=== PATIENT | male | born 1945 | race Caucasian/White ===

== ENCOUNTER 2023-08-08 12:26 | Emergency (ER) | payer MEDICARE, OTHER, SELFPAY ==
[2023-08-08 12:34] VITALS: BP 132/86
[2023-08-08 12:58] LABS: % Basophils 0.6 % (0-2); % Eosinophils 1.6 % (0-6); % Immature Granulocytes 0.4 % (0-0.5); % Lymphocytes 33.3 % (20.5-51.1); % Neutrophils 55.1 % (42.2-75.2); Absolute Eosinophils 0.1 10^3/uL (0-0.7); Absolute Lymphocytes 2.3 10^3/uL (1.2-3.4); Absolute Monocytes 0.6 10^3/uL (0.1-0.6); Absolute Neutrophils 3.9 10^3/uL (1.4-6.5); Hematocrit 41.4 % (39.0-52.0); Hemoglobin 12.9 g/dL (13.0-18.0); Mean Corp Hgb Conc. 31.2 g/dL (33.0-37.0); Mean Corpuscular Hgb 24.3 pg (27.0-31.0); Mean Corpuscular Volume 78.1 fL (80.0-94.0); Nucleated Red Blood Cells % 0 % (-); Platelet Count 200 10^3/uL (130-400); Red Cell Dist. Width 17.7 % (11.5-14.5)
[2023-08-08 13:10] LABS: ALT (SGPT) 24 U/L (0-50); AST (SGOT) 25 U/L (17-59); Albumin 4.1 g/dl (3.5-5.0); Alkaline Phosphatase 77 U/L (38-126); Blood Urea Nitrogen 15 mg/dl (9-20); Calcium 9.5 mg/dl (8.4-10.2); Carbon Dioxide 29 mmol/L (22-30); Chloride 107 mmol/L (98-107); Glucose 109 mg/dl (70-99); Potassium 4.5 mmol/L (3.5-5.1); Sodium 140 mmol/L (135-145); Total Bilirubin 1.1 mg/dl (0.2-1.3); Total Protein 6.9 g/dl (6.3-8.2); eGFR > 60.00
--- NOTE | 2023-08-08 14:46 | ED.GENMED ---
History of Present Illness
General
Chief Complaint: Dizziness
Source: patient
Exam Limitations: none
Time Seen by Provider: 08/08/23 14:39
Nursing documentation reviewed up to this point in time: agreed with
Travel History
Have you had any contact with someone who has COVID-19?: No
Do you have any symptoms of coronavirus? Fever > 100 degrees, chills, cough, shortness of breath, sore throat, loss of taste or smell, muscle aches, or headache?: No
History of Present Illness
History of Present Illness:
The patient is a 78-year-old man with a past medical history of hypertension, hyperlipidemia and diabetes who reports dizziness that started yesterday. Patient reports symptoms are much better. He reports that when the symptoms were more intense
yesterday, he felt nauseous. He denies vision changes. He reports for the last 7 to 10 days he has also noticed decreased hearing and ringing out of the right ear. He denies fever. He denies weakness and numbness. He denies chest pain or
shortness of breath.
Past History
Past History
ED Past Medical History: HTN, Hypercholesterolemia and NIDDM
ED Past Surgical History: Other
Social History
Tobacco: Smoker
Alcohol: Other
Drug: None
Personal: Other
Living: with family
Employment: Other
Family History
Family History: Other
Review of Systems
Review of Systems
Allergies reviewed?: Yes
All Other Systems: ROS reviewed and negative except as documented in HPI and ROS
Constitutional: Reports no symptoms
EENT: Reports other
Respiratory: Reports no symptoms
Cardiac: Reports no symptoms
ABD/GI: Reports nausea
: Reports no symptoms
Musculoskeletal: Reports no symptoms
Skin: Reports no symptoms
Neurological: Reports dizzy
Endocrine: Reports no symptoms
Hematologic/Lymphatic: Reports no symptoms
Psychiatric: Reports no symptoms
Phy Exam
Physical Exam
Physical Exam:
Physical Exam
General: no apparent distress, not acutely ill . Well and comfortable
Neck: supple. no meningeal signs. normal psoterior pharynx. TMs appear normal bilaterally
Heart: s1/s2 regular rate and rhythm,
Lungs: no acute respiratory distress. clear bilaterally
Abdomen: normal bowel sounds. not tender. no CVAT
Neuro: alert and oriented. no focal neurological deficits. Visual gallagher intact. Extraocular muscles intact. Normal [id number]. Normal gait.
Skin: no rash
Psychiatric: well kept. interactive and cooperative
Extremities: no edema. no calf tenderness. negative homans. good distal pulses
Course
Orders/Labs/Results
Orders:
Orders
08/08/23 12:40
Electrocardiogram (*1) Urgent
Reason for Study: Vertigo / Dizzy
EKG- Treatment ONCE
08/08/23 12:45
CT Head W/o Iv Contrast Urgent
Comment:
Reason For Exam: vertigo/hearing loss
08/08/23 12:47
Complete Blood Count/With Diff Urgent
Comprehensive Metabolic Panel Urgent
08/08/23 16:58
Aspirin Chewable [Low Strength Aspirin] 81 mg PO NOW STA
Clopidogrel Bisulfate [Plavix] 75 mg PO NOW STA
Abnormal Lab Results
08/08/23
12:47
Hgb 12.9 L g/dL
(13.0-18.0)
MCV 78.1 L fL
(80.0-94.0)
MCH 24.3 L pg
(27.0-31.0)
MCHC 31.2 L g/dL
(33.0-37.0)
RDW 17.7 H %
(11.5-14.5)
MPV 12.0 H fL
(7.4-10.4)
Glucose 109 H mg/dl
(70-99)
08/08/23 12:47
08/08/23 12:47
Vital Signs
Initial and Last Documented VS:
Initial Vital Signs
Temp Pulse Resp BP Pulse Ox
97.6 F 67 18 132/86 96
08/08/23 12:34 08/08/23 12:34 08/08/23 12:34 08/08/23 12:34 08/08/23 12:34
Last Documented Vital Signs
Temp Pulse Resp BP Pulse Ox
97.6 F 70 18 140/82 98
08/08/23 12:34 08/08/23 17:11 08/08/23 17:11 08/08/23 17:11 08/08/23 17:11
MDM/Problems Addressed
Differential Diagnosis Includes:
TIA, benign positional vertigo, M�ni�re's disease
MDM/Problems Addressed:
Patient presents with acute dizziness and ringing of his right ear
Chronic conditions affecting care: HTN
Acute Exacerbation and/or Progression of Chronic Illness:
Patient is mildly hypertensive, however, he has no significant hypertension
Acute Exacerbation and/or Progression of Chronic Illness: HTN
*Radiology
Radiology exam reviewed: radiology read reviewed
*Pulse Oximetry
Patient hypoxic: no
*EKG
Interpreted by ED Provider?: Yes
Interpretation: abnormal
Comparison EKG: no changes
Rate: normal
Rhythm: sinus
[place]: left axis deviation
Interval: normal interval
QRS Pattern: normal QRS
Ischemia: no ischemia
*Canopy Stringer Interpretation
Rate: normal
Interpretation: normal
Rhythm: sinus
*Critical Care Note
Total Time (30-74mins, 75-104mins- exclusive of procedures): Not Applicable
Data Reviewed
Source: patient and family
Further Testing Considered But Not Given:
Consider getting an MRI brain, however, I spoke to radiologist and I am unable to get an MRI at this time
Patient Management
Social determinants of health affecting care: Living situation and Strong social support
Discussion with other providers: Other (Dr. Dove who recommended MRI. Given patient unable to get an MRI tonight, decision made to discharge the patient on aspirin and Plavix and follow-up with neurology as an outpatient.)
Escalation/DeEscalation of care consider admission/obs:
Patient remains asymptomatic and looks well. I told the patient and his son that dizziness could be due to a possible TIA. I offered them admission to the hospital, however, they report that they rather be able to go home. They understand the
patient is recommended to start 81 mg aspirin, 75 mg of Plavix, and continue his statin to prevent a possible stroke. They understand to listen out for neurology phone call and if they do not hear from neurology, they should call neurology in about
2 to 3 days. Patient also reports he has an appointment with ENT August 17
ED Attending Note
-
Portions of this chart may have been created with voice recognition software.� Occasional wrong word or��sound alike� substitutions may have occurred due to the inherent limitations of voice recognition software.
Discharge Plan
Departure
Patient Disposition: Home (Routine Discharge)
Date of Disposition: 08/08/23
Time of Disposition: 16:54
Patient with high blood pressure during this ER visit?: Yes
Condition: Good
Covid-19: Not Applicable
Discharge Problem:
Dizziness
Instructions: Dizziness, BLOOD PRESSURE
Prescriptions:
New
meclizine 25 mg tablet
25 mg PO BID PRN (Reason: dizziness) Qty: 7 0RF
clopidogrel [Plavix] 75 mg tablet
75 mg PO DAILY 20 Days Qty: 20 0RF
Referrals:
Ely Dove, DO [Active] - (Call in 3 days if you do not hear from the neurology clinic before then. (Neurology also wants to see you in the office for dizziness))
UNKNOWN - PT DOES,NOT KNOW [Family Provider] -
Activity Restrictions/Additional Instructions:
Please return immediately with any vision changes or worsening dizziness.
To protect you against a possible stroke, please take 81 mg of aspirin (can be bought [id number]) once a day for 21 days straight, as well as 75 mg of Plavix once a day for 21 days straight. It is also important that you follow-up with the
neurologist for the dizziness. If you do not hear from neurology within 2 to 3 days, please call the neurology office to schedule an appointment.
Please also continue to take your cholesterol medicine. This is very important.
It is important that you also follow-up with your ENT appointment as you have scheduled already for August.
Interventions
Interventions:
*Risk Screen - Suicide Last Done: 08/08/23 17:13
*General Assessment Last Done: 08/08/23 17:11
*Neglect/Abuse Screening Last Done: 08/08/23 17:11
ED- Fall Risk Assessment Last Done: 08/08/23 17:13
*ED COVID-19 Vaccine History Last Done: 08/08/23 17:11
*Nursing Disposition Last Done: 08/08/23 17:11
ED- Neurological Assessment Last Done: 08/08/23 16:43
ED- Cardiac Assessment Last Done: 08/08/23 16:43
ED Swallowing Screen Last Done: 08/08/23 16:43
Discharge Date and Time
Discharge Date/Time: 08/08/23 17:13
[2023-08-08] MEDS: PLAVIX 75 MG PO (17:08)
[2023-08-08] MEDS: LOW STRENGTH ASPIRIN 81 MG PO (17:08)
[2023-08-08 17:11] VITALS: BP 140/82
== END 2023-08-08 17:13 | disposition home or self-care (01) ==
LOC: EMR 12:26
PROVIDERS: Emergency Medicine; EMERGENCY PHYSICIAN Emergency Medicine
DX: R42 Dizziness and giddiness (principal); R11.0 Nausea; H93.11 Tinnitus, right ear; I10 Essential (primary) hypertension; E78.00 Pure hypercholesterolemia, unspecified; E11.9 Type 2 diabetes mellitus without complications; I25.10 Atherosclerotic heart disease of native coronary artery without angina pectoris; F17.200 Nicotine dependence, unspecified, uncomplicated; Z79.84 Long term (current) use of oral hypoglycemic drugs; Z95.5 Presence of coronary angioplasty implant and graft; Z88.5 Allergy status to narcotic agent
CPT/HCPCS: 99284; 70450; 80053; 85025; 93005

== ENCOUNTER 2024-05-06 00:14 | Emergency (ER) | payer OTHER, SELFPAY ==
[2024-05-06 00:16] VITALS: BP 175/91
[2024-05-06 00:45] VITALS: BP 170/79; BMI 32.1
[2024-05-06] MEDS: DUONEB 9 ML INH (01:04)
[2024-05-06 01:06] VITALS: BP 166/92
[2024-05-06 01:06] LABS: % Basophils 0.4 % (0-2); % Eosinophils 2.6 % (0-6); % Immature Granulocytes 0.3 % (0-0.5); % Lymphocytes 22.4 % (20.5-51.1); % Monocytes 9.5 % (1.7-9.3); % Neutrophils 64.8 % (42.2-75.2); Absolute Eosinophils 0.2 10^3/uL (0-0.7); Absolute Lymphocytes 2.1 10^3/uL (1.2-3.4); Absolute Monocytes 0.9 10^3/uL (0.1-0.6); Absolute Neutrophils 6.1 10^3/uL (1.4-6.5); Hematocrit 39.9 % (39.0-52.0); Hemoglobin 12.1 g/dL (13.0-18.0); Mean Corp Hgb Conc. 30.3 g/dL (33.0-37.0); Mean Corpuscular Hgb 22.6 pg (27.0-31.0); Mean Corpuscular Volume 74.6 fL (80.0-94.0); Nucleated Red Blood Cells % 0 % (-); Platelet Count 199 10^3/uL (130-400); Red Blood Cell Count 5.35 10^6/uL (4.70-6.10); Red Cell Dist. Width 18.8 % (11.5-14.5); White Blood Cell Count 9.4 10^3/uL (4.8-10.8)
--- NOTE | 2024-05-06 01:10 | ED.GENMED ---
History of Present Illness
General
Chief Complaint: Pneumonia Symptoms
Time Seen by Provider: 05/06/24 00:31
History of Present Illness
History of Present Illness:
78-year-old male with history of CAD on Plavix, hypertension, hyperlipidemia presenting to the emergency department for cough and difficulty breathing. Patient reports symptoms for the past 2 days. He went to urgent care today, had a chest x-ray
was diagnosed as pneumonia, started on Augmentin. However, prior to arrival, felt increasingly short of breath which prompted him to come to the hospital. Denies chest pain. Cough has been nonproductive. Denies abdominal pain or GI symptoms.
Denies history of asthma or COPD. Denies additional acute medical complaints
Past History
Past History
ED Past Medical History: HTN, Hypercholesterolemia and NIDDM
ED Past Surgical History: Other
Social History
Tobacco: Smoker
Alcohol: Other
Drug: None
Personal: Other
Living: with family
Employment: Other
Family History
Family History: Other
Phy Exam
Physical Exam
Physical Exam:
General: Well-appearing, no clinical signs of dehydration, nontoxic and in no acute distress
HEENT: protecting airway
Neck: appears supple
CV: Normal heart rate, regular rhythm, no evidence of cyanosis
Resp: No accessory muscle use, no increased work of breathing, rhonchorous breath sounds bilaterally with mild end expiratory wheezing
Abd: Soft and non-distended, no tenderness to palpation
Extremities: No deformities, no swelling
Neuro: alert, no focal neurologic deficit
: deferred
Rectal: deferred
Psych: Normal affect
Skin: Intact
Course
Orders/Labs/Results
Orders:
Orders
05/06/24 00:19
Electrocardiogram (*1) Urgent
Reason for Study: Shortness of Breath
05/06/24 00:20
EKG- Treatment ONCE
05/06/24 00:41
Ipratropium/Albuterol Sulfate [Duoneb] 9 ml INH R NOW ONE
CR Chest - 2 Views Urgent
Comment:
Reason For Exam: cough
05/06/24 00:52
Complete Blood Count/With Diff Urgent
Comprehensive Metabolic Panel Urgent
Abnormal Lab Results
05/06/24
00:52
Hgb 12.1 L g/dL
(13.0-18.0)
MCV 74.6 L fL
(80.0-94.0)
MCH 22.6 L pg
(27.0-31.0)
MCHC 30.3 L g/dL
(33.0-37.0)
RDW 18.8 H %
(11.5-14.5)
MPV 11.0 H fL
(7.4-10.4)
Absolute Monos (auto) 0.9 H 10^3/uL
(0.1-0.6)
Monocytes % 9.5 H %
(1.7-9.3)
Glucose 113 H mg/dl
(70-99)
05/06/24 00:52
05/06/24 00:52
Vital Signs
Initial and Last Documented VS:
Initial Vital Signs
Temp Pulse Resp BP Pulse Ox
98.5 F 74 18 175/91 97
05/06/24 00:16 05/06/24 00:16 05/06/24 00:16 05/06/24 00:16 05/06/24 00:16
Last Documented Vital Signs
Temp Pulse Resp BP Pulse Ox
98.5 F 74 18 170/79 94
05/06/24 00:16 05/06/24 00:16 05/06/24 00:16 05/06/24 00:45 05/06/24 00:45
MDM/Problems Addressed
MDM/Problems Addressed:
78-year-old male with history of CAD, hypertension, diabetes presenting for shortness of breath and cough. Vital signs on arrival significant for hypertension.
On exam patient is well-appearing, no acute respiratory distress, active dry cough. Mild rhonchorous respirations bilaterally with mild end expiratory wheezing. Continue to suspect pneumonia versus viral syndrome versus bronchitis. Patient notes
that he did have a COVID and flu swab today that was negative. Will obtain chest x-ray imaging and laboratory analysis. DuoNebs administered for patient's symptoms. Will reassess for improvement.
01:45 -patient's chest x-ray without significant sign of pneumonia. Labs are unremarkable without leukocytosis. Patient reports symptom improvement after DuoNebs. Ambulatory pulse ox within normal limits. Suspect bronchitis at this time. Will
prescribe inhaler. Will also give one-time dose of Decadron, however patient known diabetic, sugars are controlled, advised to use monitoring of his sugar. Otherwise feel stable for discharge with continued outpatient follow-up. Return
precautions discussed and patient verbalized understanding
*EKG
Interpreted by ED Provider?: Yes
EKG Intrepretation Date: 05/06/24
EKG Intrepretation Time: 01:18
Interpretation: normal
Comparison EKG: no changes (08/08/23)
Heart Rate: 72
Rate: normal
Rhythm: sinus
[place]: normal axis
QRS Pattern: right bundle branch block
Ischemia: no ischemia
*Critical Care Note
Total Time (30-74mins, 75-104mins- exclusive of procedures): Not Applicable
ED Attending Note
-
Portions of this chart may have been created with voice recognition software.� Occasional wrong word or��sound alike� substitutions may have occurred due to the inherent limitations of voice recognition software.
Discharge Plan
Departure
Prescriptions:
No Action
meclizine 25 mg tablet
25 mg PO BID PRN (Reason: dizziness) Qty: 7 0RF
clopidogrel [Plavix] 75 mg tablet
75 mg PO DAILY 20 Days Qty: 20 0RF
Interventions
Interventions:
*Risk Screen - Suicide Last Done: 05/06/24 01:20
*General Assessment Last Done: 05/06/24 00:16
*Neglect/Abuse Screening Last Done: 05/06/24 01:20
ED- Fall Risk Assessment Last Done: 05/06/24 01:20
*ED COVID-19 Vaccine History Last Done: 05/06/24 00:43
ED- Cardiac Assessment Last Done: 05/06/24 00:43
ED- Pulmonary Assessment Last Done: 05/06/24 00:43
Discharge Date and Time
Print Language: GERMAN
[2024-05-06 01:16] LABS: ALT (SGPT) 24 U/L (0-50); AST (SGOT) 29 U/L (17-59); Albumin 4.4 g/dl (3.5-5.0); Alkaline Phosphatase 74 U/L (38-126); Blood Urea Nitrogen 16 mg/dl (9-20); Calcium 9.8 mg/dl (8.4-10.2); Carbon Dioxide 29 mmol/L (22-30); Chloride 103 mmol/L (98-107); Estimated Creatinine Clearance 80 ml/min; Glucose 113 mg/dl (70-99); Potassium 4.8 mmol/L (3.5-5.1); Sodium 144 mmol/L (135-145); Total Bilirubin 0.6 mg/dl (0.2-1.3); Total Protein 7.2 g/dl (6.3-8.2); eGFR > 60.00
[2024-05-06] MEDS: DECADRON 6 MG IV (01:50)
[2024-05-06 01:51] VITALS: BP 162/83
== END 2024-05-06 01:59 | disposition home or self-care (01) ==
LOC: EMR 00:14
PROVIDERS: EMERGENCY PHYSICIAN Student in an Organized Health Care Education/Training Program; FAMILY PHYSICIAN Family Medicine
DX: R05.9 Cough, unspecified (principal); R06.02 Shortness of breath; I25.10 Atherosclerotic heart disease of native coronary artery without angina pectoris; E78.00 Pure hypercholesterolemia, unspecified; E11.9 Type 2 diabetes mellitus without complications; F17.200 Nicotine dependence, unspecified, uncomplicated; I10 Essential (primary) hypertension; Z79.02 Long term (current) use of antithrombotics/antiplatelets
CPT/HCPCS: 94640; 96374; 99285; 71046; 80053; 85025; 93005